=== PATIENT | female | born 1995 | race Caucasian/White ===

== ENCOUNTER 2022-03-06 12:16 | Observation (INO) | payer OTHER ==
[2022-03-06] MEDS ORDERED: Meclizine HCl 25 MG TAB ONE (13:11)
[2022-03-06] MEDS ORDERED: Ondansetron PF 4 MG/2 ML Vial ONE (13:16)
[2022-03-06 13:17] LABS: #Eosinphils 0.1 10x3/uL (0.0-0.5); #Monocytes 0.5 10x3/uL (0.0-1.1); #Neutrophils 6.7 10x3/uL (1.5-8.4); %Basophils 0.3 % (0.0-2.0); %Eosinophils 0.6 % (0.0-6.0); %Lymphocytes 26.4 % (18.0-47.0); %Monocytes 4.5 % (0.0-10.0); %Neutrophils 67.9 % (40.0-75.0); Mean Corpuscular HGB CONC 35.2 g/dL (32.0-36.0); Mean Corpuscular Hemoglobin 32.8 pg (27.0-33.0); Mean Corpuscular Volume 93.2 fl (81.6-98.3); Mean Platelet Volume 9.4 fl (7.4-10.4); Platelet Count 373 10x3/uL (150-450); RBC Distribution Width 12.3 % (11.5-14.5); Red Blood Cell (RBC) Count 3.96 10x6/uL (3.90-5.03); White Blood Cell (WBC) Count 9.9 10x3/uL (3.5-10.5)
[2022-03-06 13:33] LABS: BHCG - Serum Negative (NEGATIVE); Pregs Control Background? CLEAR/WHITE (CLR/WHITE); Pregs Control Bar Appear? YES (CONTROL BAR)
[2022-03-06 14:01] LABS: ALT (SGPT) 21 U/L (8-55); AST (SGOT) 29 U/L (5-34); Albumin 4.9 g/dL (3.5-5.0); Alkaline Phosphatase 37 U/L (40-110); Anion Gap 23 mmol/L (10-20); BUN (Urea Nitrogen) 9 mg/dL (7.0-18.7); Bilirubin, Total 0.4 mg/dL (0.2-1.2); CK (CPK) 82 U/L (29-168); Calc. Creatinine Clearance 0 mL/min (70-130); Calcium 9.6 mg/dL (7.8-10.44); Carbon Dioxide 16 mmol/L (22-29); Chloride 104 mmol/L (98-107); Estimated GFR 111; Globulin 3.2 g/dL (2.4-3.5); Glucose 76 mg/dL (70-105); Magnesium 1.5 mg/dL (1.6-2.6); Potassium 3.8 mmol/L (3.5-5.1); Protein, Total 8.1 g/dL (6.0-8.3); Sodium 139 mmol/L (136-145)
[2022-03-06 14:34] LABS: Bilirubin Neg (Negative); Blood, Urine Negative (Negative); Clarity Clear (Clear); Glucose, Urine (Dipstick) Normal (Negative); Ketone, Urine 15 mg/dL (Negative); Leukocyte 25 (Negative); Nitrite Negative (Negative); Protein, Urine (Dipstick) Negative (Neg-Trace); Specific Gravity, Urine 1.015 (1.005-1.030); Urobilinogen Normal mg/dL (Less than 2)
[2022-03-06 14:52] LABS: Bacteria/HPF 3+ HPF (None Seen); Mucous/LPF 2+ LPF (<2+); RBC/HPF 0-3 HPF (0-3)
[2022-03-06] MEDS ORDERED: cefTRIAXone\\ROCEPHIN 2 GM VIAL ONE (15:31)
[2022-03-06] MEDS ORDERED: Magnesium 2 GM/50 ML BAG (IN WATER) ONE (15:31)
[2022-03-06 16:07] LABS: Lactic Acid 1.7 mmol/L (0.5-2.2)
[2022-03-06 18:19] VITALS: BMI 22.1
[2022-03-06] MEDS ORDERED: FLU VACC QS2022-23(6MOS UP)/PF 60 MCG/0.5 ML SYRINGE IM ONE (18:30)
[2022-03-06] MEDS ORDERED: Melatonin 3 MG TAB PO PRN (18:43)
[2022-03-06] MEDS ORDERED: Acetaminophen 325 MG TAB PO PRN (19:35)
[2022-03-06] MEDS ORDERED: Ondansetron ODT 4 MG TAB PO PRN (19:35)
[2022-03-06] MEDS ORDERED: Ondansetron PF 4 MG/2 ML Vial IVP PRN (19:35)
[2022-03-06] MEDS ORDERED: Electrolyte Replacement Protocol 1 EACH FS SCH (19:45)
[2022-03-06] MEDS: Famotidine 20 MG TAB PO SCH (20:12)
[2022-03-06] MEDS ORDERED: Escitalopram Oxalate 10 mg Tablet PO SCH (22:45)
[2022-03-07 05:15] LABS: Anion Gap 14 mmol/L (10-20); BUN (Urea Nitrogen) 5 mg/dL (7.0-18.7); Calc. Creatinine Clearance 119 mL/min (70-130); Calcium 8.7 mg/dL (7.8-10.44); Carbon Dioxide 19 mmol/L (22-29); Chloride 110 mmol/L (98-107); Estimated GFR 121; Glucose 91 mg/dL (70-105); Sodium 139 mmol/L (136-145)
[2022-03-07 05:21] LABS: Magnesium 2.2 mg/dL (1.6-2.6)
[2022-03-07 06:02] LABS: SARS-CoV-2 NAA Rapid Test Not Detected (NotDetected)
[2022-03-07 06:06] LABS: #Eosinphils 0.2 10x3/uL (0.0-0.5); #Monocytes 0.5 10x3/uL (0.0-1.1); #Neutrophils 3.7 10x3/uL (1.5-8.4); %Basophils 0.4 % (0.0-2.0); %Eosinophils 2.3 % (0.0-6.0); %Lymphocytes 43.8 % (18.0-47.0); %Neutrophils 47.2 % (40.0-75.0); Hemoglobin 11.9 g/dL (12.0-15.5); Mean Corpuscular HGB CONC 33.8 g/dL (32.0-36.0); Mean Corpuscular Hemoglobin 32.6 pg (27.0-33.0); Mean Corpuscular Volume 96.4 fl (81.6-98.3); Platelet Count 251 10x3/uL (150-450); RBC Distribution Width 12.2 % (11.5-14.5); Red Blood Cell (RBC) Count 3.65 10x6/uL (3.90-5.03); White Blood Cell (WBC) Count 7.9 10x3/uL (3.5-10.5)
[2022-03-07 06:56] LABS: Platelet Clumps SLIGHT
[2022-03-07 08:25] VITALS: BP 137/72; TEMP 98.2
[2022-03-07] MEDS: Famotidine 20 MG TAB PO SCH (08:54)
[2022-03-07] MEDS ORDERED: cefTRIAXone\\ROCEPHIN 1 GM in Sodium Chloride 0.9% 100 ML IVPB SCH (15:00)
[2022-03-07] MEDS ORDERED: Escitalopram Oxalate 10 mg Tablet PO SCH (21:00)
== END 2022-03-07 10:55 | disposition home or self-care (01) ==
LOC: CSHERS 12:16 → INTOOBSV 17:54 → CSHTELE 17:54
PROVIDERS: ADMIT Internal Medicine; ATTEND Internal Medicine
DX: N30.00 Acute cystitis without hematuria (principal); E87.20 Acidosis, unspecified; E83.42 Hypomagnesemia; F41.9 Anxiety disorder, unspecified; F32.A Depression, unspecified; Z20.822 Contact with and (suspected) exposure to COVID-19; Z79.899 Other long term (current) drug therapy
CPT/HCPCS: 36415; 36416; 71045; 80048; 80053; 81003; 81015; 82550; 83605; 83735; 84443; 84484; 84703; 85025; 87040; 87086; 93005; 94760; 96361; 96365; 96366; 96368; 96375; G0378; J0696; J2405; J3475; U0002

== ENCOUNTER 2022-06-11 11:58 | Outpatient (CLI) | payer OTHER | END 2022-06-11 11:59 | disposition home or self-care (01) | LOC: CSHULT 11:58 | PROVIDERS: ATTEND Student in an Organized Health Care Education/Training Program | DX: M79.605 Pain in left leg (principal); I82.812 Embolism and thrombosis of superficial veins of left lower extremity ==